=== PATIENT | male | born 1935 | race African-American/Black ===

== ENCOUNTER 2024-08-30 06:50 | Emergency (ER) | payer MEDICARE ==
[~2024-08-30] VITALS: Ht 175.3 cm; Wt 89.8 kg
[2024-08-30] VITALS (8 sets, daily range): BP systolic 130–152; BP diastolic 70–81
[2024-08-30] MEDS ORDERED: SODIUM CHLORIDE 0.9% 1,000 ML IV ONE (07:30)
[2024-08-30] MEDS ORDERED: LOSARTAN POTASS1 TA3 (07:41)
[2024-08-30] MEDS ORDERED: PREDNISONE5 MG PO (07:41)
[2024-08-30] MEDS ORDERED: TAMSULOSIN0.4 MG PO (07:42)
[2024-08-30] MEDS ORDERED: PYRIDOSTIGM60 MG PO (07:42)
[2024-08-30 07:47] LABS: BASO% 0.3 % (0-3); EOS% 1.8 % (0-8); HEMATOCRIT 42.9 % (39.0-50.0); IMMATURE GRANULOCYTES 0.2 % (0.0-5.0); LYMPH% 42.8 % (15-41); MEAN CELL VOLUME 98.4 fL CALC (80.0-100.0); MEAN CORPUSCULAR HGB 32.1 pG CALC (26.0-32.0); MEAN CORPUSCULAR HGB CONC 32.6 g/dL CAL (32.0-36.0); NEUT# 2.86 thou/uL (1.82-7.42); NEUT% 46.9 % (42-76); RED BLOOD COUNT 4.36 mill/uL (4.70-6.10); RED CELL DISTRI WIDTH 13.6 % (11.5-15.5)
[2024-08-30 07:59] LABS: ALBUMIN 4.3 g/dL (3.2-5.0); BILIRUBIN, TOTAL 0.7 mg/dL (0.2-1.3); POTASSIUM 3.8 mmol/l (3.5-5.1); TOTAL PROTEIN 6.9 g/dL (6.3-8.2)
[2024-08-30 08:52] LABS: URINE BILIRUBIN - DIPSTICK Negative (NEGATIVE); URINE BLOOD DIPSTICK Small (NEGATIVE); URINE COLOR Yellow; URINE GLUCOSE - DIPSTICK Negative (NEGATIVE); URINE KETONE Negative (NEGATIVE); URINE LEUK ESTERASE Moderate (NEGATIVE); URINE NITRITE - DIPSTICK Negative (Negative); URINE PROTEIN - DIPSTICK Negative (NEG-TRACE); URINE UROBILINOGEN - DIPSTICK 0.2 E.U./dL (0.2)
[2024-08-30] MEDS ORDERED: KEFLEX500 MG PO (09:01)
[2024-08-30] MEDS ORDERED: CEPHALEXIN MONOHYDRATE 500 MG/CAP PO ONE (09:05)
[2024-08-30 09:06] LABS: URINE WBC 20-50 WBC/hpf (0-5)
[2024-08-30 09:08] LABS: URINE SQUAMOUS EPITHELIAL CELL FEW EPI/hpf (0-FEW)
[2024-08-30 09:09] LABS: URINE BACTERIA FEW hpf
== END 2024-08-30 09:21 | disposition home or self-care (01) ==
LOC: ED 06:50
PROVIDERS: Family Medicine
DX: N39.0 Urinary tract infection, site not specified (principal)

== ENCOUNTER 2024-09-01 08:48 | Emergency (ER) | payer MEDICARE ==
[~2024-09-01] VITALS: Ht 175.3 cm; Wt 92.0 kg
[~2024-09-01 08:48] MED LIST: KEFLEX500 MG PO; LOSARTAN POTASS1 TA3; PREDNISONE5 MG PO; PYRIDOSTIGM60 MG PO; TAMSULOSIN0.4 MG PO
[2024-09-01 08:52] VITALS: BP 156/76
[2024-09-01 09:00] VITALS: BP 137/70
[2024-09-01 09:52] LABS: BASO% 0.5 % (0-3); EOS% 1.3 % (0-8); HEMATOCRIT 41.9 % (39.0-50.0); IMMATURE GRANULOCYTES 0.2 % (0.0-5.0); LYMPH% 27.4 % (15-41); MEAN CELL VOLUME 97.2 fL CALC (80.0-100.0); MEAN CORPUSCULAR HGB 32.5 pG CALC (26.0-32.0); MEAN CORPUSCULAR HGB CONC 33.4 g/dL CAL (32.0-36.0); MONO% 7.7 % (2-13); NEUT# 3.93 thou/uL (1.82-7.42); NEUT% 62.9 % (42-76); RED BLOOD COUNT 4.31 mill/uL (4.70-6.10); RED CELL DISTRI WIDTH 13.5 % (11.5-15.5)
[2024-09-01 09:52] LABS: URINE BILIRUBIN - DIPSTICK Negative (NEGATIVE); URINE BLOOD DIPSTICK Moderate (NEGATIVE); URINE GLUCOSE - DIPSTICK Negative (NEGATIVE); URINE KETONE Negative (NEGATIVE); URINE NITRITE - DIPSTICK Negative (Negative); URINE PH 5.5 (4.5-8.0); URINE PROTEIN - DIPSTICK 30 mg/dL (NEG-TRACE); URINE UROBILINOGEN - DIPSTICK 0.2 E.U./dL (0.2)
[2024-09-01 09:59] LABS: URINE COLOR Yellow; URINE LEUK ESTERASE Small (NEGATIVE)
[2024-09-01 10:01] VITALS: BP 156/75
[2024-09-01 10:02] LABS: URINE BACTERIA RARE hpf
[2024-09-01 10:03] LABS: URINE SQUAMOUS EPITHELIAL CELL FEW EPI/hpf (0-FEW)
[2024-09-01 10:08] LABS: ALBUMIN 4.3 g/dL (3.2-5.0); BILIRUBIN, TOTAL 0.9 mg/dL (0.2-1.3); POTASSIUM 3.5 mmol/l (3.5-5.1); TOTAL PROTEIN 7.2 g/dL (6.3-8.2)
[2024-09-01 10:15] VITALS: BP 148/77
[2024-09-01] MEDS ORDERED: CEPHALEXIN500 M1 PO ×2 (11:27→11:28)
[2024-09-01] MEDS ORDERED: LIDOCAINE HCL 2 % JELLY TOP ONE (11:30)
[2024-09-01 11:48] VITALS: BP 138/70
== END 2024-09-01 11:55 | disposition home or self-care (01) ==
LOC: ED 08:48
PROVIDERS: Family Medicine
PROC: 0T9B70Z Drainage of Bladder with Drainage Device, Via Natural or Artificial Opening (ICD-10-PCS; principal; 2024-09-01)
DX: N40.1 Benign prostatic hyperplasia with lower urinary tract symptoms (principal); R39.14 Feeling of incomplete bladder emptying; N39.0 Urinary tract infection, site not specified